=== PATIENT | male | born 1990 ===

== ENCOUNTER 2017-02-21 18:40 | Emergency (ER) | payer SELFPAY ==
--- NOTE | 2017-02-21 19:16 | C.PDOC ---
History Of Present Illness The patient presents to the ED for evaluation of dizziness which began this morning. Patient also notes he had a headache this morning which has now resolved. Patient denies vision change, ear pain, slurred speech, and extremity numbness/weakness. Time Seen by Provider: 02/21/17 19:15 Chief Complaint (Nursing): Dizziness/Lightheaded History Per: Patient History/Exam Limitations: no limitations Onset/Duration Of Symptoms: Hrs Current Symptoms Are (Timing): Still Present Activity At Onset Of Symptoms: Change In Head Position Associated Symptoms Preceding Syncopal Episode: No Predromal Symptoms (Sudden Onset) Seizure Or Post-ictal Symptoms: None Fall Associated With With Symptoms: No Severity: Mild Pain Scale Rating Of: 3 Recent travel outside of the [place]: No Additional History Per: Patient - Symptoms Of CVA Associated Symptoms: denies: Impaired Speech, New Vision Deficit(Left), New Vision Deficit(Right) Recent Aspirin Use: No Current Coumadin Use?: No Recent Head Trauma: No Past Medical History Reviewed: Historical Data, Nursing Documentation, Vital Signs Vital Signs: Last Vital Signs Temp 98.3 F 02/21/17 18:43 Pulse 72 02/21/17 18:43 Resp 16 02/21/17 18:43 BP 136/79 02/21/17 18:43 Pulse Ox 99 02/21/17 19:48 - Medical History PMH: No Chronic Diseases Surgical History: No Surg Hx Family History: States: Unknown Family Hx - Social History Hx Tobacco Use: Yes Hx Alcohol Use: Yes Hx Substance Use: No - Immunization History Hx Tetanus Toxoid Vaccination: No Hx Influenza Vaccination: No Hx Pneumococcal Vaccination: No Review Of Systems Constitutional: Negative for: Fever, Chills Eyes: Negative for: Vision Change ENT: Negative for: Ear Pain Cardiovascular: Negative for: Chest Pain, Palpitations Respiratory: Negative for: Cough, Shortness of Breath Gastrointestinal: Negative for: Nausea, Vomiting Skin: Negative for: Rash, Jaundice, Bruising Neurological: Positive for: Dizziness. Negative for: Weakness, Numbness, Incoordination, Change in Speech, Confusion, Headache Physical Exam - Physical Exam Appears: Non-toxic, No Acute Distress Skin: Warm, Dry Head: Normacephalic Eye(s): bilateral: Normal Inspection Ear(s): Bilateral: Normal Oral Mucosa: Dry Neck: Supple Chest: Symmetrical, No Deformity, No Tenderness Cardiovascular: Rhythm Regular, No Murmur Respiratory: No Rales, No Rhonchi, No Wheezing Back: Normal Inspection Extremity: Normal ROM, Capillary Refill (less than 2 seconds ) Extremity: Bilateral: Normal Color And Temperature Neurological/Psych: Oriented x3, No Romberg Gait: Steady ED Course And Treatment - Laboratory Results Result Diagrams: 02/21/17 19:41 02/21/17 19:41 O2 Sat by Pulse Oximetry: 99 (on RA) Pulse Ox Interpretation: Normal Progress Note: labs and CT head ordered. Pt received Zofran IV and IV Fluids. Medical Decision Making Medical Decision Making: Upon provider reevaluation patient is feeling better, is medically stable, and requires no further treatment in the ED at this time. Patient will be discharged home with Rx for . Counseling was provided and all questions were answered regarding diagnosis and need for follow up with the referred clinic. There is agreement to discharge plan. Return if symptoms persist or worsen. Disposition Counseled Patient/Family Regarding: Studies Performed, Diagnosis, Need For Followup - Disposition Referrals: [facility] [Outside] Disposition: HOME/ ROUTINE Disposition Time: 19:16 Condition: FAIR Additional Instructions: Please return if symptoms recur Instructions: Dizziness (ED) - Clinical Impression Clinical Impression: Dizziness - Scribe Statement The provider has reviewed the documentation as recorded by the Scribe (Afshan Aguilar) Provider Attestation: All medical record entries made by the Scribe were at my direction and personally dictated by me. I have reviewed the chart and agree that the record accurately reflects my personal performance of the history, physical exam, medical decision making, and the department course for this patient. I have also personally directed, reviewed, and agree with the discharge instructions and disposition.
[2017-02-21] MEDS ORDERED: Sodium Chloride 0.9% 1,000 ML IV ONE (19:26)
[2017-02-21 19:44] LABS: BASO % 0.7 % (0.0-2.0); EOS # 0.2 K/uL (0.0-0.7); EOS % 3.5 % (0.0-4.0); HEMOGLOBIN 14.6 g/dL (12.0-18.0); LYMPH # 1.2 K/uL (1.0-4.3); LYMPH % 19.9 % (20.0-40.0); MEAN CELL VOLUME 78.8 fL (80.0-94.0); MEAN CORPUSCULAR HEMOGLOBIN 25.4 pg (27.0-31.0); MEAN CORPUSCULAR HGB CONC 32.2 g/dL (33.0-37.0); MEAN PLATELET VOLUME 8.9 fL (7.2-11.7); MONO # 0.5 K/uL (0.0-0.8); MONO % 8.5 % (0.0-10.0); NEUT # 4.2 K/uL (1.8-7.0); NEUT % 67.4 % (50.0-75.0); NRBC % 0.1 % (0.0-2.0); RBC 5.76 Mil/uL (4.40-5.90); RED CELL DISTRIBUTION WIDTH 14.1 % (11.5-14.5); WHITE BLOOD COUNT 6.3 K/uL (4.8-10.8)
[2017-02-21 19:55] LABS: GFR AFRICAN-AMERICAN > 60; GFR NON-AFRICAN AMERICAN > 60
[2017-02-21 19:56] LABS: ALB/GLOB RATIO 1.3 (1.0-2.1); ALT/SGPT 48 U/L (21-72); AST/SGOT 30 U/L (17-59); BLOOD UREA NITROGEN 17 mg/dL (9-20)
[2017-02-21 19:57] LABS: CALCIUM 9.4 mg/dl (8.6-10.4)
[2017-02-21 19:58] LABS: URINE BACTERIA RARE (<OCC); URINE BILIRUBIN NEGATIVE (NEGATIVE); URINE BLOOD NEGATIVE (NEGATIVE); URINE CLARITY Clear (Clear); URINE COLOR Yellow (YELLOW); URINE GLUCOSE (UA) NORMAL (Normal); URINE LEUKOCYTE ESTERASE NEG Leu/uL (Negative); URINE NITRATE NEGATIVE (NEGATIVE); URINE PROTEIN NEGATIVE (NEGATIVE); URINE UROBILINOGEN NORMAL mg/dL (0.2-1.0)
[2017-02-21 20:05] LABS: BARBITURATES, UR NEGATIVE (NEGATIVE)
[2017-02-21 20:06] LABS: BENZODIAZEPINES, UR NEGATIVE (NEGATIVE)
[2017-02-21] MEDS ORDERED: Sodium Chloride 0.9% 1,000 ML ONE (20:07)
[2017-02-21 20:09] LABS: OPIATES, UR NEGATIVE (NEGATIVE)
[2017-02-21 20:10] LABS: PHENCYCLIDINE, UR NEGATIVE (NEGATIVE)
[2017-02-21 21:04] VITALS: BP 100/62; PULSE 66; RESP 20; TEMP 98.5; O2SAT 98
--- NOTE | 2017-02-22 08:16 | CT ---
PROCEDURE: CT HEAD WITHOUT CONTRAST. HISTORY: Headache COMPARISON: None available. TECHNIQUE: Axial computed tomography images were obtained through the head/brain without intravenous contrast. Radiation dose: Total exam DLP = 1044 mGy-cm. This CT exam was performed using one or more of the following dose reduction techniques: Automated exposure control, adjustment of the mA and/or kV according to patient size, and/or use of iterative reconstruction technique. FINDINGS: HEMORRHAGE: No intracranial hemorrhage. BRAIN: No mass effect or edema. No atrophy or chronic microvascular ischemic changes. Punctate hypodensity in the left basal ganglia suggestive for a dilated perivascular space. VENTRICLES: Unremarkable. No hydrocephalus. CALVARIUM: Unremarkable. PARANASAL SINUSES: Mucous retention cyst noted within the left maxillary sinus. Mucosal thickening noted in the right maxillary sinus. Mucosal thickening noted within the ethmoid air cells bilaterally. MASTOID AIR CELLS: Unremarkable as visualized. No inflammatory changes. OTHER FINDINGS: None. IMPRESSION: Chronic sinusitis involving the maxillary and ethmoid air cells. If headaches or focal neurologic deficit persists, consider MRI. These findings were preliminarily reported at 8:32 p.m. on 02/21/2017.
== END 2017-02-21 21:04 | disposition home or self-care (01) ==
LOC: C.ER 18:40
DX: R42 Dizziness and giddiness (principal)
CPT/HCPCS: 70450; 80053; 81001; 85025; 96361; 96374; 99285; G0480; J2405; J7040

== ENCOUNTER 2017-03-22 18:38 | Emergency (ER) | payer OTHER ==
[2017-03-22 18:53] VITALS: TEMP 98.5
[2017-03-22] MEDS ORDERED: Naproxen 550 mg Tab PO STA (19:20)
--- NOTE | 2017-03-22 19:30 | C.PDOC ---
History Of Present Illness 26 y/o male presents to ED with complaints of right wrist pain since yesterday. Patient states pain developed after lifting heavy box at work. Patient denies direct trauma, change in sensation, numbness, tingling or any other complaints at this time. Patient is right hand dominant. Time Seen by Provider: 03/22/17 19:07 Chief Complaint (Nursing): Upper Extremity Problem/Injury History Per: Patient History/Exam Limitations: no limitations Onset/Duration Of Symptoms: Days Current Symptoms Are (Timing): Still Present Quality: "Pain" Past Medical History Reviewed: Historical Data, Nursing Documentation, Vital Signs Vital Signs: Last Vital Signs Temp 98.5 F 03/22/17 18:50 Pulse 78 03/22/17 20:14 Resp 16 03/22/17 20:14 BP 129/75 03/22/17 20:14 Pulse Ox 99 03/22/17 21:04 Family History: States: Unknown Family Hx - Social History Hx Tobacco Use: Yes Hx Alcohol Use: Yes Hx Substance Use: No - Immunization History Hx Tetanus Toxoid Vaccination: No Hx Influenza Vaccination: No Hx Pneumococcal Vaccination: No Review Of Systems Except As Marked, All Systems Reviewed And Found Negative. Musculoskeletal: Positive for: Hand Pain Skin: Negative for: Rash Neurological: Negative for: Weakness, Numbness Physical Exam - Physical Exam Appears: Non-toxic, No Acute Distress Skin: Normal Color, Warm, Dry, No Rash Head: Atraumatic, Normacephalic Eye(s): bilateral: Normal Inspection, EOMI Nose: Normal Oral Mucosa: Moist Neck: Normal ROM, Supple Chest: Symmetrical Respiratory: No Accessory Muscle Use Extremity: Normal ROM, Tenderness (To Anterior aspect of wrist), Capillary Refill (<2 seconds), No Deformity, No Swelling Pulses: Left Radial: Normal, Right Radial: Normal Neurological/Psych: Oriented x3, Normal Speech, Normal Motor, Normal Sensation ED Course And Treatment O2 Sat by Pulse Oximetry: 99 (RA) Pulse Ox Interpretation: Normal - Other Rad Right wrist X-Ray: Interpreted by Me, Viewed By Me Interpretation: No fracture or dislocation of right wrist noted Disposition - Disposition Referrals: Aldo Valente III, MD [Staff Provider] - Disposition: HOME/ ROUTINE Disposition Time: 19:32 Condition: STABLE Additional Instructions: Julienne henriquez o la clnica en 1-3 davila sin falta, para mas evaluacin. Alvord los medicamentos trevin indicado. Volver a la madalyn de emergencia en cualquier momento si los sntomas persisten o empeoran. Prescriptions: Naproxen [Naprosyn] 1 tab PO BID PRN #20 tab PRN Reason: Pain Instructions: Wrist Sprain (ED) Forms: [employer] (Sami) Print Language: YORUBA - Clinical Impression Clinical Impression: Wrist sprain - Scribe Statement The provider has reviewed the documentation as recorded by the Scribphani Funk All medical record entries made by the Scribe were at my direction and personally dictated by me. I have reviewed the chart and agree that the record accurately reflects my personal performance of the history, physical exam, medical decision making, and the department course for this patient. I have also personally directed, reviewed, and agree with the discharge instructions and disposition.
[2017-03-22 20:14] VITALS: BP 129/75; PULSE 78; RESP 16
[2017-03-22 21:04] VITALS: O2SAT 99
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
== END 2017-03-22 20:14 | disposition home or self-care (01) ==
LOC: C.ER 18:38
DX: S63.501A Unspecified sprain of right wrist, initial encounter (principal); X50.0XXA Overexertion from strenuous movement or load, initial encounter; Y93.89 Activity, other specified; Y92.89 Other specified places as the place of occurrence of the external cause; Y99.8 Other external cause status

== ENCOUNTER 2018-07-31 19:25 | Emergency (ER) | payer OTHER ==
[2018-07-31 19:38] VITALS: BP 126/75; PULSE 65; RESP 20; TEMP 98.8; O2SAT 98
[2018-07-31] MEDS ORDERED: Naproxen 550 mg Tab PO STA (19:57)
[2018-07-31] MEDS ORDERED: Naproxen 550 mg Tab PO ONE (20:04)
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
== END 2018-07-31 20:28 | disposition home or self-care (01) ==
LOC: C.ER 19:25
DX: S33.5XXA Sprain of ligaments of lumbar spine, initial encounter (principal); V49.49XA Driver injured in collision with other motor vehicles in traffic accident, initial encounter; Y92.410 Unspecified street and highway as the place of occurrence of the external cause